=== PATIENT | female | born 1995 | race Caucasian/White ===

== ENCOUNTER 2018-09-07 14:29 | Emergency (ER) | payer OTHER ==
[~2018-09-07] VITALS: Ht 162.6 cm; Wt 58.5 kg
[2018-09-07] MEDS ORDERED: ONDANSETRON ODT 4 MG ONE (14:45)
[2018-09-07] MEDS ORDERED: PLEASE ENTER HEIGHT AND WEIGHT MC SCH (14:49)
[2018-09-07] MEDS ORDERED: ONDANSETRON ODT 4 MG PO ONE (15:00)
[2018-09-07] MEDS ORDERED: SODIUM CHLORIDE FLUSH 10ML SYR IVF ONE ×2 (15:00→16:30)
[2018-09-07 15:15] LABS: MEAN CORPUSCULAR HEMOGLOBIN 29.9 pg (27.0-34.8); MEAN CORPUSCULAR HGB CONC 33.4 g/dL (32.4-35.8); MEAN CORPUSCULAR VOLUME 89.5 fL (80-100); MEAN PLATELET VOLUME 9.1 fL (7.4-10.4); PLATELET COUNT 299 x10^3/uL (130-400); RED BLOOD COUNT 5.34 x10^6/uL (3.82-5.3)
[2018-09-07 15:19] LABS: ALBUMIN 4.2 g/dL (3.4-5.0); ANION GAP 9 mmol/L (5-15); CHLORIDE 110 mmol/L (98-107)
[2018-09-07 15:26] LABS: ALANINE AMINOTRANSFERASE 19 U/L (12-78); ALKALINE PHOSPHATASE 59 U/L (45-117); BILIRUBIN,TOTAL 1.2 mg/dL (0.2-1.0); CREATININE 0.97 mg/dL (0.55-1.02); TOTAL PROTEIN 7.8 g/dL (6.4-8.2)
[2018-09-07 15:33] LABS: MD YES
[2018-09-07 15:36] LABS: BAND#(MANUAL) 1.81 x10^3/uL; BANDS%(MANUAL) 9 % (0-7); LYMPHS% (MANUAL) 2 % (22-44); MONOS% (MANUAL) 4 % (2-9); SEG#(MANUAL) 17.09 x10^3/uL (1.8-6.8); SEGS% (MANUAL) 85 % (42-75)
[2018-09-07 15:37] LABS: <PLATELET ESTIMATE> ADEQUATE; <RBC MORPHOLOGY> NORMAL; LARGE PLATELETS 1+
--- NOTE | 2018-09-07 16:25 | NUR ---
FIRST CONTACT WITH PT: PT TO ED FOR N/V/D, ABD PAIN WORSE IN EPIGASTRIC AREA AND RAD TO BILATERAL FLANK SINE LAST NIGHT. CONNECTED TO MONITORS. VSS. IV ESTABLISHED. LABS COMPLETE. PT UP SELF WITH STEADY GAIT TO RR WITH MOTHER BY SIDE TO COLLECT UA SAMPLE.
[2018-09-07] MEDS ORDERED: SODIUM CHLORIDE 0.9% 1,000ML IVBOLUS ONE (16:30)
--- NOTE | 2018-09-07 16:33 | NUR ---
edmd to bs for assessment.
[2018-09-07] MEDS ORDERED: KETOROLAC 30 MG/1 ML ONE (16:47)
--- NOTE | 2018-09-07 16:55 | NUR ---
BREAK RN: pt laying on gurney awake & crying, watching TV, medicated per eMAR, responds approp to staff, comfort measures provided, mom at BS, call light within reach.
[2018-09-07] MEDS ORDERED: KETOROLAC 30 MG/1 ML IVPush ONE (17:00)
--- NOTE | 2018-09-07 17:27 | NUR ---
EDMD TO BS TO UPDATE ON POC. NEW ORDERS RECEIVED FOR CT. VSS. NO NEEDS AT THIS TIME. AWAITING CT.
[2018-09-07] MEDS ORDERED: ONDANSETRON 2MG/ML, 2ML ONE (18:05)
[2018-09-07] MEDS ORDERED: MORPHINE SULFATE 4 MG/ML, 1ML ONE (18:05)
--- NOTE | 2018-09-07 18:11 | NUR ---
PT REQUESTING MEDICATION FOR PAIN AND NAUSEA. EDMD NOTIFIED. ORDERS RECEIVED. PT MEDICATED PER JUL. VSS. NO OTHER NEEDS EXPRESSED. AWAITING CT.
[2018-09-07 18:12] VITALS: BP 101/58
[2018-09-07] MEDS ORDERED: ONDANSETRON 2MG/ML, 2ML IVPush ONE (18:30)
[2018-09-07] MEDS ORDERED: MORPHINE SULFATE 4 MG/ML, 1ML IVPush ONE (18:30)
[2018-09-07] MEDS ORDERED: OMNIPAQUE 350 MG/ML, 100ML BOTTLE ONE (19:12)
--- NOTE | 2018-09-07 19:23 | NUR ---
all results back at this time. chart up for recheck.
== END 2018-09-07 19:41 | disposition home or self-care (01) ==
LOC: ED 18:31
DX: R10.84 Generalized abdominal pain (principal); R11.2 Nausea with vomiting, unspecified; R19.7 Diarrhea, unspecified
CPT/HCPCS: 36415; 74177; 80053; 83690; 84703; 85025; 96361; 96374; 96375; 99284; J1885; J2405; J7030; Q0162; Q9967